=== PATIENT | female | born 2000 | race African-American/Black ===

== ENCOUNTER 2019-04-04 18:09 | Emergency (ER) | payer OTHER ==
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
--- NOTE | 2019-04-05 08:37 | CT ---
Head CT Technique: Multiple axial sections through the brain were obtained. Intravenous contrast was not utilized. Comparison: No prior intracranial imaging. Findings: Ventricles along the basal cisterns and sulci over the convexities appear within normal limits for the patient's age. No abnormal parenchymal densities are seen. No evidence of intracranial hemorrhage. No midline shift or mass effect is seen. Bone window settings were reviewed which show the visualized mastoid sinuses and visualized paranasal sinuses to appear clear. No acute calvarial abnormality is appreciated. Impression: 1. Nothing acute is appreciated on noncontrast head CT study. Diagnostic code #1 I agree with preliminary report issued by [facility] ([facility] report finalized on 04/04/19, 7:59 PM Central Time) This report was dictated in [place] Standard Time
== END 2019-04-04 19:52 | disposition home or self-care (01) ==
LOC: JD.ED 18:09
DX: G44.319 Acute post-traumatic headache, not intractable (principal); V58.6XXA Passenger in pick-up truck or van injured in noncollision transport accident in traffic accident, initial encounter; Y92.410 Unspecified street and highway as the place of occurrence of the external cause
CPT/HCPCS: 70450; 70450-26; 99283; 99284-25